=== PATIENT | female | born 1990 | race American Indian/Alaskan Native ===

== ENCOUNTER 2022-10-29 15:53 | Observation (INO) ==
[2022-10-29] MEDS ORDERED: IOPAMIDOL 100 ML BOTTLE IV ONE (15:54)
--- NOTE | 2022-10-29 16:20 | EKG ---
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 Measurements Intervals [place] Rate: 109 P: 37 MT: 198 QRS: 131 QRSD: 86 T: 0 QT: 319 QTc: 429 Interpretive Statements Sinus tachycardia Delayed R wave progression Electronically Signed On 10-29-2022 16:19:53 PST by Willow Watts D.O. /store/[id number]
[2022-10-29 16:21] LABS: POC Calcium, Ionized 1.06 (1.16-1.32); POC Creatinine 0.6 (0.6-1.2); POC Potassium 3.7 (3.3-5.1)
--- NOTE | 2022-10-29 16:31 | Emergency Department Note ---
HPI General Chief complaint: Recheck/Abnormal Lab/Rx Stated complaint: Low potassium Time Seen by Provider: 10/29/22 16:18 Source: patient Mode of arrival: ambulatory Limitations: no limitations History of Present Illness HPI Narrative: Narrative: Patient is a 32-year-old female with no significant past medical history who presents to the emergency department due to chest pain, cough, and shortness of breath. She states that she has had symptoms for a couple of weeks at this time. She has had been evaluated at [facility], and has also been evaluated here in the emergency department 2 times prior to today's visit. She went to see her primary care physician who was concerned about her fast breathing and e levated white blood cell count, so sent her to the emergency department. At this time she endorses shortness of breath and cough. She states that she has had constant and worsening sharp chest pain in the center of her chest that radiates to her back. She states that the only thing that is helped so far, and only for a very brief period of time was hydrocodone that was prescribed to her. She states that initially she was given a prescription for Augmentin which did not help, so then was given a prescription for azithromycin. She states that this did not help either. She was also given prednisone with the azithromycin, and states that this did not help. She states that her pain and cough has made it so that she has gotten very little sleep over the last 2 weeks. She denies any other symptoms or concerns at this time. Related Data Previous Rx's Medication Instructions Recorded promethazine-DM 6.25 mg-15 mg/5 mL 5 ml PO Q6H #118 mL 10/21/22 oral syrup hydrocodone 7.5 mg-acetaminophen 1 tab PO Q8H PRN pain #10 tabs 10/24/22 325 mg tablet prednisone 50 mg tablet 50 mg PO QDAY #4 tabs 10/24/22 azithromycin 250 mg tablet See Rx Instructions PO .COMPLEX #6 10/26/22 tabs benzonatate 200 mg capsule 200 mg PO TID PRN cough #20 caps 10/26/22 Allergies Allergy/AdvReac Type Severity Reaction Status Date / Time Cortisone AdvReac Intermediate Abdominal Verified 10/21/22 13:25 Pain Review of Systems ROS ROS Narrative: Narrative: Constitutional: Denies fever or weakness Eyes: Denies eye pain or vision change ENT ED: Denies throat pain or rhinorrhea Cardiovascular: Reports chest pain; Denies dyspnea on exertion, orthopnea or edema Respiratory: Reports shortness of breath, cough and wheezes; Denies hemoptysis Gastrointestinal: Denies abdominal pain, nausea, vomiting, diarrhea, constipation, hematochezia or melena Musculoskeletal: Reports back pain; Denies myalgia Integumentary: Denies rash or lesions Neurological: Denies headache, weakness, numbness, confusion, abnormal gait or dizziness Endocrine: Denies fatigue or polyuria [facility] Narrative Patient History Narrative: Narrative: Medical/Surgical/Family History All Active Problems (Updated 10/26/22 @ 23:25 by Blas Patton DO) Pleurisy (Acute) Bronchitis (Acute) Transfusion reaction (Acute) UTI (urinary tract infection) (Acute) Laceration (Acute) Urinary tract infection (Acute) Abdominal pain (Acute) Tachycardia (Acute) Right arm numbness (Chronic) Headache (Acute ~11/2016) Lightheadedness (Acute ~11/2016) Nerve disorder (Chronic 2015) History of blood transfusion (Chronic 2009) Kidney stones (Chronic ~2008) Insomnia (Chronic ~2014) Medical History (Updated 10/26/22 @ 23:25 by Blas Patton DO) Abdominal pain Anemia (~2006) irregular menses; took iron and improved diet resolved this Headache (~11/2016) aching of her head bilaterally, some associated nausea; occurring daily since 11/2016 History of blood transfusion (2009) 2 units due to hemorrhaging after delivery of first child Insomnia (~2014) uses melatonin; has a schedule for work where she has to be up very early in the morning; difficulty falling asleep and staying asleep Kidney stones (~2008) at 16 years of age x 1 Lightheadedness (~11/2016) has been evaluated in ER; referred to neurology at end of March 2017 has appt Nerve disorder (2016) Problem with epidural during 3rd . Still has problem with nerve now. warm sensation down the lateral side of the right leg. hemorrhage (~2009) 2u PRBC Right arm numbness Tachycardia Surgical History [place] teeth removed (~2005) Family History Grandmother Diabetes Maternal Heart attack Maternal Mother Kidney stone Social History Smoking Status: Never smoker Alcohol Intake Frequency: holiday/special occasion only Substance Use: does not use Exam Narrative Narrative: Narrative: General Limitations: no limitations General appearance: Present alert and in no apparent distress; Absent anxious, appears intoxicated or sleepy Head Head: Present atraumatic and normocephalic Eye Eye: Present EOMI; Absent scleral icterus or nystagmus ENT ENT: Present mucous membranes moist; Absent nasal congestion Neck Neck: Present full ROM; Absent tenderness Chest Chest: Present normal inspection and symmetric chest wall rise; Absent tenderness Respiratory Respiratory: Present normal lung sounds bilaterally and wheezes; Absent respiratory distress, rales/crackles, stridor or accessory muscle use Cardiovascular Cardiovascular: Present normal rhythm, tachycardia and normal heart sounds Adbominal Abdominal: Present soft and normal bowel sounds; Absent distention or tenderness Extremities Extremities: Present normal inspection and full ROM; Absent tenderness, pedal edema, pretibial edema or calf tenderness Back Back: Present normal inspection and full ROM; Absent tenderness Neurological Neurological: Present alert, oriented X3, CN II-XII intact, normal gait and reflexes normal; Absent motor sensory deficit Psychiatric Psychiatric: Present normal affect and normal mood Skin Skin: Present warm (WNL), dry and normal color Course Vital Signs Vital signs: Vital Signs Temperature 98.4 F 10/29/22 15:59 Pulse Rate 121 H 10/29/22 15:59 Respiratory Rate 24 H 10/29/22 15:59 Blood Pressure 139/84 10/29/22 15:59 Pulse Oximetry (%) 98 10/29/22 15:59 Oxygen Delivery Method 10/29/22 15:59 Temperature 98.4 F 10/29/22 15:59 Pulse Rate 87 10/29/22 18:46 Respiratory Rate 20 10/29/22 18:46 Blood Pressure 123/93 10/29/22 18:46 Pulse Oximetry (%) 96 10/29/22 18:46 Oxygen Delivery Method 10/29/22 15:59 MDM MDM Narrative Medical decision making narrative: Narrative: Patient is a 32-year-old female who presents to the emergency department due to chest pain and shortness of breath. Differential diagnoses include pulmonary embolus, pneumonia, pericarditis, costochondritis, and other musculoskeletal causes. Patient's labs do demonstrate a mild elevation in white blood cell count. Chest x-ray is reassuring. A CT angiogram was obtained and this was also reassuring without pulmonary embolus or other findings. Toradol was given without change in pain. A DuoNeb was given with some improvement in wheezing. A continuous neb has been ordered. Labs are still pending. I have signed patient out to Dr. Elkins. Lab Data Result diagrams: 10/29/22 17:36 Labs: Lab Results 10/29/22 10/29/22 10/29/22 Range/Units 16:15 17:35 17:36 WBC 14.6 H (4.5-11.0) K/mcL RBC 4.51 (3.59-5.38) M/mcL Hgb 13.1 (11.2-15.7) g/dL Hct 40.3 (34.1-44.9) % POC Hct 43.0 (36-48) MCV 89.4 (80.0-100.0) fL MCH 29.0 (26.0-34.0) pg MCHC 32.5 (31.0-36.0) g/dL RDW 12.9 (11.5-14.5) % Plt Count 383 (140-440) K/mcL MPV 9.8 (8.8-12.5) fL Immature Gran % (Auto) 1.4 H (0.0-0.5) % Neut % (Auto) 81.5 H (38.0-78.0) % Lymph % (Auto) 13.0 L (15.5-49.0) % [place] % (Auto) 3.6 (1.0-12.0) % Eos % (Auto) 0.1 (0.0-7.0) % Baso % (Auto) 0.4 (0.0-2.0) % Lymph # (Auto) 1.89 (1.50-4.80) K/mcL [place] # (Auto) 0.53 (0.10-0.90) K/mcL Eos # (Auto) 0.01 (0.00-0.70) K/mcL Baso # (Auto) 0.06 (0.00-0.30) K/mcL Immature Gran # 0.20 H (0.00-0.05) K/mcl Absolute Neutrophils 11.88 H (1.80-8.00) K/mcL POC Sodium 139 (133-145) POC Potassium 3.7 (3.3-5.1) POC Chloride 105 (96-108) POC Total CO2 24.0 (22-30) POC BUN 9 (6-20) POC Creatinine 0.6 (0.6-1.2) POC Glucose 152 H (70-105) POC WB Ioniz Calcium 1.06 L (1.16-1.32) Total Bilirubin 0.2 (0.1-1.0) mg/dL Direct Bilirubin < 0.2 (0-0.3) mg/dL AST 26 (<32) U/L ALT 34 (<40) U/L Alkaline Phosphatase 82 (39-117) U/L Total Protein 6.8 (5.9-8.4) gm/dL Albumin 4.1 (3.2-5.2) gm/dL Globulin 2.7 (2.2-3.7) gm/dL ED POC Tests ED POC Tests: HCG POC Results Negative EKG Data EKG #1: EKG attestation: Yes I reviewed and interpreted this EKG. EKG results narrative: Sinus tachycardia with a rate of 109, equivocal axis, OR 198, QRS of 86, QTc of 429, T wave inversions in lead III, T wave flattening in lead aVF, he had absence of ST elevation or depression. Discharge Plan Patient/Caregiver Discharge Instructions Pt seen by DIGITAL ASSISTANT/PA only: No Patient Disposition: Still a Patient Follow up with: Renée Doherty, RICKEY, FLASK FITTER [Primary Care Provider] - Prescriptions: No Action promethazine-DM 6.25-15 mg/5 mL syrup 5 ml PO Q6H Qty: 118 0RF prednisone 50 mg tablet 50 mg PO QDAY Qty: 4 0RF hydrocodone-acetaminophen 7.5-325 mg tablet 1 tab PO Q8H PRN (Reason: pain) Qty: 10 0RF azithromycin 250 mg tablet See Rx Instructions .ROUTE .COMPLEX Qty: 6 0RF Rx Instructions: For 250 mg dose pack: take 500 mg today (day 1), then 250 mg for 4 days (days 2-5) benzonatate 200 mg capsule 200 mg PO TID PRN (Reason: cough) Qty: 20 0RF
--- NOTE | 2022-10-29 16:41 | XRay Report ---
HISTORY: Short of breath with pleurisy FINDINGS: There is a thin linear band of scar or discoid atelectasis at the left costophrenic sulcus. The lungs are otherwise clear and well expanded. Heart size, mediastinum and adina are normal. There is no pneumothorax or pleural effusion. There has been no change since 10/26/22. IMPRESSION: Minor scarring or discoid atelectasis laterally at the left lung base. The exam is otherwise normal. Interpreted and Authenticated by: Pj Mireles 10/29/22
[2022-10-29] MEDS ORDERED: KETOROLAC 30 MG/ML VIAL IV ONE (17:05)
[2022-10-29] MEDS ORDERED: IPRATROPIUM/ALBUTEROL 3 ML AMPUL.NEB NEB ONE (17:55)
[2022-10-29 18:37] LABS: Basophils # (Auto) 0.06 K/mcL (0.00-0.30); Basophils % (Auto) 0.4 % (0.0-2.0); Eosinophils # (Auto) 0.01 K/mcL (0.00-0.70); Eosinophils % (Auto) 0.1 % (0.0-7.0); Hematocrit 40.3 % (34.1-44.9); Hemoglobin 13.1 g/dL (11.2-15.7); Lymphocytes # (Auto) 1.89 K/mcL (1.50-4.80); Mean Cell Volume 89.4 fL (80.0-100.0); Mean Corpuscular HGB Conc 32.5 g/dL (31.0-36.0); Mean Platelet Volume 9.8 fL (8.8-12.5); Monocytes # (Auto) 0.53 K/mcL (0.10-0.90); Monocytes % (Auto) 3.6 % (1.0-12.0); Neutrophils % (Auto) 81.5 % (38.0-78.0); Platelet Count 383 K/mcL (140-440); RBC 4.51 M/mcL (3.59-5.38); Red Cell Distribution Width 12.9 % (11.5-14.5); WBC 14.6 K/mcL (4.5-11.0)
[2022-10-29] MEDS ORDERED: ALBUTEROL SULFATE 5 MG/ML NEB SOLUTION BOTTLE NEB ONE (19:03)
[2022-10-29] MEDS ORDERED: IPRATROPIUM 2.5 ML AMPUL.NEB NEB ONE (19:03)
[2022-10-29 19:05] LABS: ALT/SGPT 34 U/L (<40); AST/SGOT 26 U/L (<32); Albumin 4.1 gm/dL (3.2-5.2); Alkaline Phosphatase 82 U/L (39-117); Bilirubin,Direct < 0.2 mg/dL (0-0.3); Bilirubin,Total 0.2 mg/dL (0.1-1.0); Globulin 2.7 gm/dL (2.2-3.7)
[2022-10-29] MEDS ORDERED: ALBUTEROL SULFATE 2.5 MG/3 ML NEBULIZER NEB ONE (19:17)
[2022-10-29] MEDS ORDERED: HYDROcodone/APAP 5/325MG TABLET PO ONE (19:53)
[2022-10-29] MEDS ORDERED: ACETAMINOPHEN 325 MG TABLET PO PRN (21:33)
[2022-10-29] MEDS ORDERED: AZITHROMYCIN 250 MG TABLET PO ONE (21:39)
[2022-10-29] MEDS ORDERED: ALBUTEROL SULFATE 2.5 MG/3 ML NEBULIZER NEB PRN (21:50)
--- NOTE | 2022-10-29 21:50 | Emergency Department Note ---
ED Note Addendum Note Addendum: I assumed care of the patient at the end of my colleagues shift. In brief the patient has been ill for 3 weeks. States she has had chest pain and shortness of breath for 5 days. Went to the urgent care at [facility] and was given antibiotics. [place] she was not getting better so she went to [facility] em ergency department. She had a work-up there which was negative and she was advised to use acetaminophen for her discomfort. The same day she presented to [facility] for the further evaluation and was given prednisone. 2 days later on Thursday she again presented to the emerged department at [facility]. At both of those of visit she had troponins which were negative and had work-ups. Please see laboratory evaluation and notes. Today she went to her primary care doctor's office who gave her nebulized treatment and then referred her here for further care. Patient had elevated white count of 14,000. A CT a was performed to rule out PE and that was negative. Chest x-ray showed some discoid atelectasis in the left lower base but no acute pathology. Patient states she was tested for COVID and for influenza at the prior ER visit and both of those were negative. Please see lab results for complete results. Here in the emerge department she received albuterol DuoNeb treatment followed by albuterol 10 mg neb treatment. She had wheezes which were still present at the end of the second albuterol neb treatment. She was tachycardic at 109 which could be either due to the underlying illness or the albuterol. Prior to the albuterol she was in the 90s. ER Dr. Tobar performed Bedside ultrasound of the heart which did not show pericarditis. Patient received Toradol in the emerge apartment and that made no difference. She received hydrocodone earlier and that did help some. Patient is with children. is in the room.Is preparing for an LSAT examination. I reviewed the EKG which did not show acute ischemic changes. It was tachycardic at 109. Troponin was normal. I discussed the case with our hospitalist who agreed to admit the patient for further care. Patient has been on Zithromax and she is due for another dose tonight. I gave her 250 mg p.o.
[2022-10-29] MEDS: LORazepam 1 MG TABLET PO PRN (21:53)
[2022-10-29] MEDS: 0.9 % SODIUM CHLORIDE 10 ML SYRINGE IV SCH (22:13)
[2022-10-29] MEDS ORDERED: cefTRIAXone 1 GM VIAL IV ONE (22:16)
[2022-10-29] MEDS ORDERED: 0.9 % SODIUM CHLORIDE 1,000 ML IV ONE (22:16)
[2022-10-29] MEDS ORDERED: 0.9 % SODIUM CHLORIDE 1,640 ML IV ONE (22:44)
[2022-10-29] MEDS ORDERED: VANCOMYCIN 1,500 MG in 0.9 % SODIUM CHLORIDE 500 ML IV ONE (22:57)
[2022-10-30] MEDS ORDERED: IPRATROPIUM/ALBUTEROL 3 ML AMPUL.NEB NEB PRN (00:38)
[2022-10-30] MEDS ORDERED: HYDROCODONE/APAP 7.5/325MG TABLET PO ONE (00:54)
[2022-10-30] MEDS: HYDROCODONE/APAP 7.5/325MG TABLET PO PRN ×2 (00:55→07:14)
[2022-10-30] MEDS: 0.9 % SODIUM CHLORIDE 10 ML SYRINGE IV SCH ×2 (05:33→07:16)
--- NOTE | 2022-10-30 07:05 | Cat Scan Report ---
History: Short of breath, pleurisy, low potassium TECHNIQUE: Following injection of intravenous nonionic contrast the chest was imaged in axial plane during the pulmonary arterial phase at 2.5 mm intervals. Sagittal, coronal and MIPS images were created. The radiation exposure was limited using dose reduction technology. FINDINGS: The pulmonary arteries are normal without evidence of emboli. There are small parenchymal scars in the inferior segment of the lingula, left lower lobe and medial segment right middle lobe. There is no lung mass, pneumonia or COPD. No adenopathy or pleural effusion are present. There is a pectus excavatum deformity of the sternum. No other chest wall lesion is present. The heart is normal in size and contour. There is moderate fatty infiltration throughout the liver. IMPRESSION: No evidence of pulmonary emboli or acute abnormality Interpreted and Authenticated by: Pj Mireles 10/30/22
[2022-10-30] MEDS: LORazepam 1 MG TABLET PO PRN (07:15)
[2022-10-30] MEDS ORDERED: IPRATROPIUM/ALBUTEROL 3 ML AMPUL.NEB NEB SCH (08:00)
[2022-10-30] MEDS ORDERED: LEVOFLOXACIN 750 MG TABLET PO SCH (09:00)
[2022-10-30] MEDS ORDERED: guaiFENesin 600 MG TAB.SR.12H PO PRN (10:13)
[2022-10-30] MEDS ORDERED: BENZONATATE 100 MG CAPSULE PO PRN (10:13)
[2022-10-30] MEDS ORDERED: ACETAMINOPHEN 325 MG TABLET PO PRN (12:56)
[2022-10-30] MEDS ORDERED: ONDANSETRON 4 MG/2 ML VIAL IV PRN (12:56)
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
[2022-10-30] MEDS ORDERED: 0.9 % SODIUM CHLORIDE 10 ML SYRINGE IV SCH (14:00)
[2022-10-30] MEDS ORDERED: guaiFENesin/CODEINE 10 ML UDC PO PRN (14:01)
[2022-10-30] MEDS ORDERED: diphenhydrAMINE 25 MG CAPSULE PO PRN (14:01)
[2022-10-30] MEDS ORDERED: FLU VACC QS2022-23(6MOS UP)/PF 60 MCG/0.5 ML SYRINGE IM ONE (15:00)
--- NOTE | 2022-10-30 15:04 | Discharge Summary ---
Discharge Provider Provider IMPORTANT FOLLOW-UP INFORMATION FOR PCP: Patient information: Note initiated : 10/30/22 at 3:03 pm Service Date, if different from initiated Date: [] Patient: Sue Joya 32 y/o F admitted on 10/29/22 for Low potassium. Chief Complaint: [Cough, chest pain] Date of admission: 10/29/22 23:29 Discharge date: 10/30/22 Primary care physician: Renée Doherty Consults: 10/29/22 Consult to Physician [CONS] Stat Comment: Consulting Provider: Sharon Hamm Reason For Exam: Physician to Consult Attending physician on discharge: Sharon Hamm COURSE Hospital Course Hospital course: The patient was admitted under observation. She did not require supplemental O2. Labs, and imaging including CTA chest were unrevealing. Bedside echocardiogram in the ER was negative for pericarditis. The patient was prescribed nebulizer treatments as needed. At one point, the patient was requesting transfer to outside facility however then decided that she would prefer to be discharged home after being explained that hospital to hospital transfer was for higher level of care. At this point, the patient would benefit from close outpatient follow-up. She may be referred to pulmonary or allergy/immunology if need be. Discharge diagnosis: Obstructive lung disease vs viral bronchitis Time Spent with Patient Time attestation: Total time spent providing and/or coordinating discharge services: Time spent: Greater than 30 minutes EXAM Constitutional Vitals: Temp Pulse Resp BP Pulse Ox O2 Del Method 97.4 F 97 H 18 122/69 95 10/30/22 12:00 10/30/22 14:44 10/30/22 14:44 10/30/22 12:00 10/30/22 14:44 10/30/22 14:44 General appearance: average body habitus Head Head exam: Present atraumatic, normal inspection and normocephalic Eye Eye exam: Present EOMI, normal appearance and PERRL; Absent conjunctival injection ENT ENT exam: Present normal exam; Absent mucous membranes dry Neck Neck exam: Present full ROM; Absent lymphadenopathy Respiratory Respiratory exam: Present normal respiratory exam and CTAB; Absent decreased breath sounds, respiratory distress or wheezes Cardiovascular Cardiovascular exam: Present normal rate and rhythm and RRR; Absent JVD GI/Abdominal GI/Abdominal exam: Present normal bowel sounds and soft; Absent diminished bowel sounds, distended, guarding, mass, rebound or tenderness Neurological Exam Neurological exam: Present alert, CN II-XII intact and oriented X3 Psychiatric Psychiatric exam: Present normal affect and normal mood Skin Skin exam: Present intact and warm; Absent erythema, pallor, petechiae or rash Discharge Data Data Completed and Pending Labs on day of discharge: Labs from last 24 hours 10/30/22 10/29/22 10/29/22 01:20 22:06 20:31 WBC RBC Hgb Hct POC Hct MCV MCH MCHC RDW Plt Count MPV Immature Gran % (Auto) Neut % (Auto) Lymph % (Auto) [place] % (Auto) Eos % (Auto) Baso % (Auto) Lymph # (Auto) [place] # (Auto) Eos # (Auto) Baso # (Auto) Immature Gran # Absolute Neutrophils POC VBG pH 7.52 H POC VBG pCO2 at Temp 19.8 L* POC VBG pO2 72 H POC VBG HCO3 16.3 L POC VBG Total CO2 17.0 L POC Venous O2 Sat 96.0 H POC VBG Base Excess -7.0 L VBG Lactic Acid 2.4 H 3.8 H POC Sodium POC Potassium POC Chloride POC Total CO2 POC BUN POC Creatinine POC Glucose POC WB Ioniz Calcium Total Bilirubin Direct Bilirubin AST ALT Alkaline Phosphatase Total Protein Albumin Globulin POC Troponin I < 0.02 10/29/22 10/29/22 10/29/22 17:36 17:35 16:15 WBC 14.6 H RBC 4.51 Hgb 13.1 Hct 40.3 POC Hct 43.0 MCV 89.4 MCH 29.0 MCHC 32.5 RDW 12.9 Plt Count 383 MPV 9.8 Immature Gran % (Auto) 1.4 H Neut % (Auto) 81.5 H Lymph % (Auto) 13.0 L [place] % (Auto) 3.6 Eos % (Auto) 0.1 Baso % (Auto) 0.4 Lymph # (Auto) 1.89 [place] # (Auto) 0.53 Eos # (Auto) 0.01 Baso # (Auto) 0.06 Immature Gran # 0.20 H Absolute Neutrophils 11.88 H POC VBG pH POC VBG pCO2 at Temp POC VBG pO2 POC VBG HCO3 POC VBG Total CO2 POC Venous O2 Sat POC VBG Base Excess VBG Lactic Acid POC Sodium 139 POC Potassium 3.7 POC Chloride 105 POC Total CO2 24.0 POC BUN 9 POC Creatinine 0.6 POC Glucose 152 H POC WB Ioniz Calcium 1.06 L Total Bilirubin 0.2 Direct Bilirubin < 0.2 AST 26 ALT 34 Alkaline Phosphatase 82 Total Protein 6.8 Albumin 4.1 Globulin 2.7 POC Troponin I Discharge Plan Patient/Caregiver Discharge Instructions Activity: resume usual activities as tolerated Prescriptions: Continued promethazine-DM 6.25-15 mg/5 mL syrup 5 ml PO Q6H Qty: 118 0RF prednisone 50 mg tablet 50 mg PO QDAY Qty: 4 0RF hydrocodone-acetaminophen 7.5-325 mg tablet 1 tab PO Q8H PRN (Reason: pain) Qty: 10 0RF azithromycin 250 mg tablet See Rx Instructions .ROUTE .COMPLEX Qty: 6 0RF Rx Instructions: For 250 mg dose pack: take 500 mg today (day 1), then 250 mg for 4 days (days 2-5) benzonatate 200 mg capsule 200 mg PO TID PRN (Reason: cough) Qty: 20 0RF Follow Up Plan Follow up with: Renée Doherty, DNP, [facility] [Primary Care Provider] - Patient Disposition: Home, Self-Care Prognosis: Fair I certify that the patient requires SNF services: No Overall status at discharge: patient is progressing back to baseline Discharge Orders: Discharge Order (Routine); Ordered 10/30/22 Ordered By: Sharon BEGUM VTE Deep Vein Thrombosis/Pulmonary Embolism Present on Admission: No
[2022-10-30] MEDS ORDERED: LEVALBUTEROL 0.63 MG/3 ML AMPUL.NEB NEB SCH (19:00)
[2022-10-30] MEDS ORDERED: DOCUSATE SODIUM 100 MG CAPSULE PO SCH (21:00)
[2022-10-30] MEDS ORDERED: SENNOSIDES 1 TABLET PO SCH (21:00)
== END 2022-10-30 15:54 | disposition home or self-care (01) ==
LOC: ED 15:53 → MEDSUR 15:53
PROVIDERS: ADMIT Student in an Organized Health Care Education/Training Program; ATTEND Student in an Organized Health Care Education/Training Program